=== PATIENT | male | born 1990 | race Caucasian/White ===

== ENCOUNTER → 2017-10-15 | Outpatient (CLI) | payer BC ==
[2017-10-15 13:08] LABS: BILIRUBIN,URINE NEG (NEG); CLARITY,URINE BLOODY; COLOR,URINE RED; GLUCOSE,URINE NEG (NEG); NITRITE,URINE NEG (NEG); UROBILINOGEN,URINE 0.2 mg/dL (0.2 mg/dL)
[2017-10-15 13:09] LABS: BACTERIA,URINE FEW /HPF (0-FEW); RBC,URINE TNTC /HPF (0-2); SQUAMOUS EPITHELIAL CELL,UR FEW /LPF; WBC,URINE OCC /HPF (0-4)
== END | disposition home or self-care (01) ==
LOC: PMG 12:23
PROVIDERS: ATTEND Nurse Practitioner Family
DX: Z51.81 Encounter for therapeutic drug level monitoring (principal); Z79.899 Other long term (current) drug therapy
CPT/HCPCS: 81001

== ENCOUNTER 2018-07-24 02:37 | Emergency (ER) | payer BC | END 2018-07-24 02:40 | disposition left against medical advice (07) | LOC: ER 02:37 | DX: F41.9 Anxiety disorder, unspecified (principal); Z53.21 Procedure and treatment not carried out due to patient leaving prior to being seen by health care provider ==

== ENCOUNTER 2020-11-08 23:32 | Emergency (ER) | payer BC, OTHER ==
[~2020-11-08] VITALS: Ht 170.2 cm; Wt 81.8 kg
[2020-11-08 23:40] VITALS: BP 143/97
[2020-11-08] MEDS ORDERED: CEPH500C PO (23:53)
--- NOTE | 2020-11-08 23:53 | PHYS DOC ---
Adult General Chief Complaint Chief Complaint: LACERATION/AVULSION [facility] HPI Patient is a 30-year-old male who presents with a laceration to the hand. 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 Denies any other injuries. States he is up-to-date on his tetanus vaccinations as he just got one last year. Denies any known allergies. Review of Systems Review of Systems Review of systems otherwise unremarkable except noted in HPI Physical Exam Physical Exam Constitutional: Well developed, well nourished, no acute distress, non-toxic appearance. [] Skin: Warm, dry, no erythema, no rash. [] Extremities: Patient has a approximately 3 cm linear laceration in between the thumb and first finger on the dorsal side of the web. Range of motion intact. Capillary refill good. Neurovascular exam intact. Able to flex and extend without issue Neurologic: Alert and oriented X 3, normal motor function, normal sensory function, no focal deficits noted. [] Psychologic: Affect normal, judgement normal, mood normal. [] EKG EKG [] Radiology/Procedures Radiology/Procedures Patient wound was cleaned vigorously with sterile water. L ET was placed for anesthesia for 30 minutes. Anesthesia achieved. Seven 5-0 Prolene sutures placed. Wound cleaned again and bandaged. Patient tolerated well. [] Heart Score Risk Factors: Risk Factors: DM, Current or recent (<one month) smoker, HTN, HLP, family history of CAD, obesity. Risk Scores: Risk Factors: DM, Current or recent (<one month) smoker, HTN, HLP, family history of CAD, obesity. Course & Med Decision Making Course & Med Decision Making Patient is a 30-year-old male who presents with hand laceration Vital signs not concerning. Physical exam noted above L ET was placed for topical anesthesia. Wound was cleaned extensively. Suture repaired. Started on antibiotics. Advised to follow-up with primary care physician in 7 days for wound check and suture removal. Advised to come back to the ED with any new or concerning symptoms or if could not get into his primary care physician. Patient grateful, verbalized understanding and agreed with plan of discharge. [] Dragon Disclaimer Dragon Disclaimer This electronic medical record was generated, in whole or in part, using a voice recognition dictation system. Departure Departure: Impression: Primary Impression: Laceration of hand Disposition: HOME SELF CARE/HOMELESS Condition: GOOD Referrals: MONIKA HOWARD MD (PCP) Patient Instructions: Laceration Care, Adult Additional Instructions: Please read the attached information. Please follow-up with your primary care physician and 5 to 7 days for a wound check and suture removal. Please take your antibiotics as prescribed. You can use Tylenol and/or ibuprofen as ice as needed for pain control. Please come back to the emergency department immediately with any new or concerning symptoms or if you cannot get into your primary care physician. Scripts Cephalexin (CEPHALEXIN) 500 Mg Capsule 1 CAP PO TID for laceration for 5 Days, #15 CAP Prov: MARY BETH BAIRD MD 11/08/20 MARY BETH BAIRD MD Nov 08, 2020 23:53
[2020-11-08] MEDS ORDERED: LIDOCAINE/EPI/TETRACAINE TOPICAL GEL 3 ML. TP ONE (23:55)
[2020-11-09] MEDS ORDERED: LIDOCAINE/EPI/TETRACAINE TOPICAL GEL 3 ML. TP ONE (00:30)
== END 2020-11-09 00:58 | disposition home or self-care (01) ==
LOC: ER 23:32
DX: S61.211A Laceration without foreign body of left index finger without damage to nail, initial encounter (principal); S61.012A Laceration without foreign body of left thumb without damage to nail, initial encounter; W26.8XXA Contact with other sharp object(s), not elsewhere classified, initial encounter; Y93.89 Activity, other specified; Y92.89 Other specified places as the place of occurrence of the external cause; Y99.8 Other external cause status
CPT/HCPCS: 12002; 99283-25

== ENCOUNTER 2020-11-22 09:54 | Emergency (ER) | payer OTHER ==
[~2020-11-22] VITALS: Ht 170.2 cm; Wt 83.0 kg
[~2020-11-22 09:54] MED LIST: CEPH500C PO
[2020-11-22 10:00] VITALS: BP 161/86
--- NOTE | 2020-11-22 10:40 | PHYS DOC ---
Past History Past Medical History: No Pertinent History Additional Past Medical Histor: adhd Past Surgical History: No Surgical History Alcohol Use: None General Adult EDM: Chief Complaint: SUTURE/STAPLE REMOVAL HPI: HPI: 30-year-old male who denies any significant past medical history presents the ED requesting suture removal of 7 sutures on patient's left nondominant hand just superior to patient's MCP joint, placed in this ED approximately 2 weeks ago. States he was at his primary care physician's office and was referred down here. Is requesting us to fill out papers for Workmen's Comp. Denies any complications with his wound. No associated rash, decreased range of motion, pain or purulent drainage. States he has intermittently put hydrogen peroxide on wound. Review of Systems: Review of Systems: Constitutional: Denies fever or chills Eyes: Denies change in visual acuity HENT: Denies nasal congestion or sore throat Respiratory: Denies cough or shortness of breath Cardiovascular: Denies chest pain or edema GI: Denies abdominal pain, nausea, vomiting, bloody stools or diarrhea : Denies dysuria Musculoskeletal: Denies back pain or joint pain Integument: Denies rash or diaphoresis Neurologic: Denies headache, focal weakness or sensory changes Endocrine: Denies polyuria or polydipsia Lymphatic: Denies swollen glands Psychiatric: Denies depression or anxiety Allergies: Allergies: Allergies Coded Allergies Type Severity Reaction Last Updated Verified No Known Drug Allergies 11/08/20 No Physical Exam: PE: Constitutional: Well developed, well nourished, no acute distress, non-toxic appearance. HENT: Normocephalic, atraumatic, Eyes: EOMI, conjunctiva normal, no discharge. Neck: Normal range of motion, supple, Cardiovascular: S1/2 present, regular rhythm Lungs & Thorax: Speaking in full sentences, bilateral equal chest rise, no tachypnea or increased work of breathing Abdomen: soft, no tenderness, Skin: Warm, dry, no erythema, no rash. [] Extremities: No tenderness, curved laceration approximately 3 to 4 cm just above patient's left first MCP joint and slightly extending into his first and second interwebspace of his left dorsal hand, 7 sutures easily removed, no signs of rash or purulent drainage, mild wound dehiscence approximately 0.5 cm middle of the laceration, Steri-Strip applied, left hand and fingers with full range of motion, cap refill less than 1 second Neurologic: Alert and oriented X 3, normal motor function, normal sensory function, no focal deficits noted. [] Psychologic: Affect normal, judgement normal, mood normal. [] Current Patient Data: Vital Signs: Vital Signs Date Time Temp Pulse Resp B/P (MAP) Pulse Ox O2 Delivery O2 Flow Rate FiO2 11/22/20 10:00 97.9 90 16 161/86 (111) 100 EKG: EKG: [] Radiology/Procedures: Radiology/Procedures: [] Heart Score: Risk Factors: Risk Factors: DM, Current or recent (<one month) smoker, HTN, HLP, family history of CAD, obesity. Risk Scores: Score 0 - 3: 2.5% MACE over next 6 weeks - Discharge Home Score 4 - 6: 20.3% MACE over next 6 weeks - Admit for Clinical Observation Score 7 - 10: 72.7% MACE over next 6 weeks - Early Invasive Strategies Course & Med Decision Making: Course & Med Decision Making Pertinent Labs and Imaging studies reviewed. (See chart for details) Encounter for suture removal. No signs of infection or rash. 7 sutures removed mild wound dehiscence. Wound care instructions given-discouraged hydrogen peroxide or alcohol application. Patient will be referred back up to Dr. Howard's office for Workmen's Comp paperwork. Will discharge home with strict ED return precautions were given for affection. Encouraged urgent outpatient follow-up with PMD. Life-threatening processes were considered but are low suspicion at this time, given history, physical exam and ED workup. Pt was educated on all prescription medications and adverse effects. All patient's questions were answered and pt was stable at time of discharge. Life/limb-threatening differential includes but is not limited to, trauma (fracture, dislocation, laceration, compartment syndrome, tendon or ligament injury), neurovascular injury or deficit, infection (osteomyelitis, abscess, cellulitis, septic arthritis, necrotizing fasciitis) or deep vein thrombosis. I spoken with the patient and her caregivers. I explained the patient's condition, diagnoses and treatment plan based on the information available to me at this time. I have answered the patient and her caregiver's questions and addressed any concerns. The patient and her caregivers have a good understanding of patient's diagnosis, condition and treatment plan as can be expected at this point. Vital signs have been stable. Patient's condition is stable and appropriate for discharge from the emergency department. Patient will pursue further outpatient evaluation with primary care physician or other designated or consulting physician as outlined in the discharge instructions. The patient and/or caregivers are agreeable to this plan of care and follow-up instructions have been explained in detail. The patient and/or caregivers have received these instructions in written form and have expressed an understanding of the discharge instructions. The patient and/or caregivers are aware that any significant change of condition or worsening of symptoms should prompt immediate return to this or the closest emergency department or call to 911. [place]ila Disclaimer: [employer] Disclaimer: This electronic medical record was generated, in whole or in part, using a voice recognition dictation system. Departure Departure: Impression: Primary Impression: Encounter for removal of sutures Additional Impression: Wound dehiscence Disposition: 01 DC HOME SELF CARE/HOMELESS Condition: STABLE Referrals: MONIKA HOWARD MD (PCP) Patient Instructions: Suture Removal, Sutured Wound Care, Wound Dehiscence Additional Instructions: EMERGENCY DEPARTMENT GENERAL DISCHARGE INSTRUCTIONS Thank you for coming to [facility] (ED) today and trusting us with you care. We trust that you had a positivie experience in our Emergency Department. If you wish to speak to the department management, you may call the director at . YOUR FOLLOW UP INSTRUCTIONS ARE FOLLOWS: 1. Do you have a private Doctor? If you do not have a private doctor, please ask for a resource list of physicians or clinics that may be able to assist you with follow up care. 2. The Emergency Physician has interpreted your x-rays. The X-Ray specialist will also review them. If there is a change in the findings, you will be notified in 48 hours when at all possible. 3. A lab test or culture has been done, your results will be reviewed and you will be notified if you need a change in treatment. ADDITIONAL INSTRUCTIONS AND INFORMATION: 1. Your care today has been supervised by a physician who is specially trained in emergency care. Many problems require more than one evaluation for a complete diagnosis and treatment. We recommend that you schedule your follow up appointment as recommended to ensure complete treatment of you illness or injury. If you are unable to obtain follow up care and continue to have a problem, or if your condition worsens, we recommend that you return to the ED. 2. We are not able to safely determine your condition over the phone nor are we able to give sound medical advice over the phone. For these safety reasons, if you call for medical advice we will ask you to come to the ED for further evaluation. 3. If you have any questions regarding these discharge instructions please call the ED at [phone]. SAFETY INFORMATION: In the interest of safety, wellness, and injury prevention; we encourage you to wear your sealbelt, if you smoke; quite smoking, and we encourage family to use a protective helmet for bicycling and other sporting events that present an increased risk for head injury. IF YOUR SYMPTOMS WORSEN OR NEW SYMPTOMS DEVELOP, OR YOU HAVE CONCERNS ABOUT YOUR CONDITION; OR IF YOUR CONDITION WORSENS WHILE YOU ARE WAITING FOR YOUR FOLLOW UP APPOINTMENT; EITHER CONTACT YOUR PRIMARY CARE DOCTOR, THE PHYSICIAN WHOSE NAME AND NUMBER YOU WERE GIVEN, OR RETURN TO THE ED IMMEDIATELY. BUBBA GILBERT DO Nov 22, 2020 10:40
== END 2020-11-22 10:45 | disposition home or self-care (01) ==
LOC: ER 09:54
DX: S61.412D Laceration without foreign body of left hand, subsequent encounter (principal); F90.8 Attention-deficit hyperactivity disorder, other type; Y92.89 Other specified places as the place of occurrence of the external cause
CPT/HCPCS: 99281